=== PATIENT | male | born 1975 | race Caucasian/White ===

== ENCOUNTER 2019-01-06 12:20 | Day surgery (SDC) | payer OTHER ==
[2019-01-06] MEDS ORDERED: LIDOCAINE 100 MG SYRINGE (13:39)
[2019-01-06] MEDS ORDERED: VASOPRESSIN 20 UNITS INJ (13:39)
[2019-01-06] MEDS ORDERED: PROPOFOL 20 ML ×2 (13:39→15:57)
[2019-01-06] MEDS ORDERED: LABETALOL HCL 20MG INJ IV (14:00)
[2019-01-06] MEDS ORDERED: hydrALAzine 20 MG INJ IV (14:00)
[2019-01-06] MEDS ORDERED: MIDAZOLAM 1 MG/ML 2 ML INJ (15:57)
[2019-01-06] MEDS ORDERED: ETOMIDATE 20 MG INJ (15:57)
== END 2019-01-06 17:32 | disposition home or self-care (01) ==
LOC: GIL 12:20
DX: K22.10 Ulcer of esophagus without bleeding (principal)
CPT/HCPCS: 43239; 88305; 88312; 88313

== ENCOUNTER 2019-01-17 11:44 | Emergency (ER) | payer OTHER ==
[2019-01-17] MEDS: LIDOCAINE 1% (MDV) 20 ML INJ INFIL (15:16)
[2019-01-17] MEDS: ACETAMINOPHEN 500 MG TAB PO (15:16)
[2019-01-17] MEDS: LIDOCAINE 1% (MPF) 5 ML VIAL IM (15:17)
[2019-01-17] MEDS: CEFTRIAXONE 1 GM INJ IM (15:17)
== END 2019-01-17 17:11 | disposition home or self-care (01) ==
LOC: FTE 11:44
DX: L02.413 Cutaneous abscess of right upper limb (principal); E66.9 Obesity, unspecified; J45.909 Unspecified asthma, uncomplicated; Z68.26 Body mass index [BMI] 26.0-26.9, adult
CPT/HCPCS: 10060; 96372; 99284-25

== ENCOUNTER 2019-02-04 21:13 | Emergency (ER) | payer OTHER | END 2019-02-05 02:49 | disposition home or self-care (01) | LOC: FTE 21:13 | DX: L02.413 Cutaneous abscess of right upper limb (principal); J45.909 Unspecified asthma, uncomplicated; E66.9 Obesity, unspecified; F17.210 Nicotine dependence, cigarettes, uncomplicated; Z68.27 Body mass index [BMI] 27.0-27.9, adult | CPT/HCPCS: 73080; 73080-RT; 99283-25 ==

== ENCOUNTER 2019-03-05 11:05 | Emergency (ER) | payer OTHER ==
[2019-03-05] MEDS: LIDOCAINE 1% (MPF) 5 ML VIAL INFIL (12:16)
== END 2019-03-05 12:57 | disposition home or self-care (01) ==
LOC: FTE 11:05
DX: L02.413 Cutaneous abscess of right upper limb (principal); J45.909 Unspecified asthma, uncomplicated; E66.9 Obesity, unspecified; Z87.891 Personal history of nicotine dependence
CPT/HCPCS: 10060; 99283-25